=== PATIENT | female | born 1985 | race Caucasian/White ===

== ENCOUNTER → 2024-10-30 | Outpatient (CLI) | payer OTHER, SELFPAY ==
--- NOTE | 2024-10-30 07:20 | MRI_ITS ---
EXAM: MR THORACIC SPINE WITHOUT AND WITH INTRAVENOUS CONTRAST CLINICAL INDICATION: subcutaneous mass lower thoracic back TECHNIQUE: Multiplanar and multisequence MR images of the thoracic spine without and with intravenous contrast. CONTRAST: 20 cc of Clariscan IV. COMPARISON: No relevant prior studies available. FINDINGS: VERTEBRAE: Unremarkable. No fracture. Normal vertebral bodies and posterior elements. Normal alignment. There is preservation of the normal thoracic kyphosis. No scoliosis. DISCS/SPINAL CANAL/NEURAL FORAMINA: Unremarkable. Normal disc height and morphology. Normal spinal canal and neuroforamina. SPINAL CORD: Unremarkable. Normal in signal and morphology. Normal conus medullaris. SOFT TISSUES: In the subcutaneous tissues of the mid back about the T4-T7 level there is a lipoma that measures 9 cm craniocaudal by 3 cm AP by 9 cm transversely that corresponds to the mass. MRI/Spine Thoracic W/WO Contrast IMPRESSION: Subcutaneous lipoma measuring 9 x 3 x 9 cm mid back at the T4-T7 level. Electronically Signed: Norman Coughlin MD at 7:59 EST ,
== END | disposition home or self-care (01) ==
LOC: MRI 07:17
PROVIDERS: PCP Pediatrics; Referring Provider Plastic Surgery; Visit Provider Plastic Surgery
DX: D48.19 Other specified neoplasm of uncertain behavior of connective and other soft tissue (principal)
CPT/HCPCS: 72157; A9575